=== PATIENT | male | born 1950 | race Caucasian/White ===

== ENCOUNTER 2017-04-16 08:32 | Emergency (ER) | payer OTHER ==
[2017-04-16 08:49] VITALS: BP 121/63; BMI 24.3
--- NOTE | 2017-04-16 09:06 | DR.GENAD ---
HPI - PCP Primary Care Physician: NFCarlos Alberto - HPI Comment HPI Comment: THESE SYMTOMS ARE INTERMITTENT FOR ONE WEEK. CURRENT SYMTOMS STARTED LAST NIGHT AND IS LASTING LONGER THAN PREVIOUS EPISODES. DENIES CHEST PAIN OR TRAUMA. NO FEVER. HAD HTN BUT NOT TAKING MED CURRENTLY. BP IN ED NORMAL. - Complaint/Symptoms Chief Complaint Doctors Comments: SOB, DIZZINESS AND PAIN BOTH ARMS. FELL SOMETHING IS STUCK UP IN HIS THROAT. Chief Complaint:: PT C/O HAVING A MÁRQUEZ, AND HAVING PAIN IN BOTH OF HIS ARMS, AND HE FEELS LIKE SOMETHING IS STUCK IN THROAT. Self Treatment fo Chief Complaint: PT C/O HAVING INTERMITTANT SOB .PT C/O BEING DIZZY.. PT DENIES C/P PT IS ALERT AND ORIENTED NO DISTRESS NOTED . PT STATES " I HAVE HTN BUT I DON'T HAVE THE MONEY TO PAY TO SEE A DOCTOR". - Nurses notes reviewed Nurses Notes Review: Yes - Source History Provided: Patient - Mode of Arrival Mode of Arrival: Ambulatory - Timing Onset of Chief Complaint: 04/16/17 Came on: Suddenly - Duration Duration: Constant Duration: Hours - Severity Severity: Moderate PMH - PMH Past Medical History: Yes Past Medical History: Hypertension Past Surgical History: Yes Surgical History: Abdominal Surgery - Family History History of Family Medical Conditions: Yes Family Medical History: Hypertension - Social History Does patient currently use any type of tobacco product: Yes Have you used tobacco products in the last 12 months: Yes Type of Tobacco Use: None How many years tobacco product used: 40 Does any household member use tobacco: No Alcohol Use: None Do you use any recreational Drugs:: No Lives With: Alone Lives Where: Home - infectious screening In the last 2 months have you had wt loss of >10#?: NO Have you had fever, night sweats or hemotysis?: No Have you traveled outside the country in the last 6 months?: No Isolation: Standard ROS - Review of Systems Constitutional: Weakness, Fatigue Eyes: No Symptoms Reported ENTM: Throat Pain (FEEL LIKE SOMETHING STUCK IN THROAT.). negative: Ear Pain, Nose Discharge, Nose Congestion Respiratoy: Non-Productive Cough, Short of Breath. negative: Wheezing, Hemoptysis Cardiovascular: No Symptoms Reported (PAIN BOTH ARMS) Gastrointestinal/Abdominal: No Symptoms Reported Genitourinary: No Symptoms Reported Neurological: Headache, Weakness, Dizziness Musculoskeletal: No Symptoms Reported Integumentary: No Symptoms Reported Hematologic/Lymphatic: No Symptoms Reported Endocrine: No Symptoms Reported All Other Systems: Reviewed and Negative PE - Vital Signs Vitals: Temperature 97.0 F Pulse Rate 97 Respiratory Rate 20 Blood Pressure 121/63 O2 Sat by Pulse Oximetry 98 - General Limitations: No Limitations General Appearance: Alert - Head Head Exam: Normal Inspection - Eyes Eye exam: Normal Appearance - ENT ENT Exam: Normal External Ear Exam External Ear Exam: Normal External Inspection TM/Canal Exam: Bilateral Normal Nose Exam: Normal Nose Exam Mouth Exam: Normal Inspection Throat Exam: Normal Inspection - Neck Neck Exam: Trachea Midline - Chest Chest Inspection: Symmetric Chest Wall Rise - Respiratory Respiratory Exam: Normal Lung Sounds Bilat Respiratory Exam: Bilateral Clear to Auscultation - Cardiovascular Cardiovascular Exam: Regular Rate, Normal Rhythm, Normal Heart Sounds - Abdominal Exam Abdominal Exam: Normal Bowel Sounds, Soft. negative: Tenderness - Extremities Extremities Exam: Normal Inspection - Back Back Exam: Normal Inspection - Neurologic Neurological Exam: Alert, Oriented X3 - Psychiatric Psychiatric Exam: Normal Affect, Normal Mood - Skin Skin Exam: Normal Color MDM - Differential Diagnosis Differential Diagnosis: [place], CVA, TIA, DIZZINESS, MUSCULOSKELETAL PAIN. Course - Treatment Treatment: SEE ORDERS. SYMTOMS RESOLVE SPONTANOUSLY WHILE PATIENT WAS IN THE ED. - Reevaluation 1st: Improved - Education/Counseling Education/Counseling: Patient, Education Educated On: Diagnosis, Needs for Follow Up ROR - Labs Reviewed Result Diagrams: 04/16/17 09:25 04/16/17 09:25 Laboratory: WBC 12.3 X10^3/uL (3.6-10.0) H 04/16/17 09:25 RBC 5.30 X10^6/uL (4.7-6.0) 04/16/17 09:25 Hgb 16.5 g/dL (13.5-18.0) 04/16/17 09:25 Hct 47.9 % (42.0-54.0) 04/16/17 09:25 MCV 90.5 fL (80.0-100.0) 04/16/17 09:25 MCH 31.2 pg (27.0-34.0) 04/16/17 09:25 MCHC 34.5 g/dL (33.0-35.0) 04/16/17 09:25 RDW 14.0 % (11.6-16.5) 04/16/17 09:25 Plt Count 298 X10^3/uL (150.0-450.0) 04/16/17 09:25 MPV 9.0 fL (7.4-11.0) 04/16/17 09:25 Neut % 69.3 % (42.0-75.0) 04/16/17 09:25 Lymph % 16.4 % (21.0-51.0) L 04/16/17 09:25 [place] % 12.2 % (0.0-13.0) 04/16/17 09:25 Eos % 1.0 % (0.9-2.9) 04/16/17 09:25 Baso % 1.1 % (0.2-1.0) H 04/16/17 09:25 Neut # 8.5 x10^3/uL (2.2-4.8) H 04/16/17 09:25 Lymph # 2.0 X10^3/uL (1.3-2.9) 04/16/17 09:25 [place] # 1.5 x10^3/uL (0.3-0.8) H 04/16/17 09:25 Eos # 0.1 x10^3/uL (0.0-0.2) 04/16/17 09:25 Baso # 0.1 X10^3/uL (0.0-0.1) 04/16/17 09:25 Absolute Nucleated RBC 0.0 /100WBC 04/16/17 09:25 Sodium 137 mmol/L (136-145) 04/16/17 09:25 Corrected Sodium 138 mmol/L (136-145) 04/16/17 09:25 Potassium 3.7 mmol/L (3.5-5.1) 04/16/17 09:25 Chloride 99 mmol/L (98-107) 04/16/17 09:25 Carbon Dioxide 25.8 mmol/L (21-32) 04/16/17 09:25 BUN 22 mg/dL (7-18) H 04/16/17 09:25 Creatinine 1.33 mg/dL (0.70-1.30) H 04/16/17 09:25 Est GFR (MDRD) Af Amer > 60 (>60) 04/16/17 09:25 Est GFR (MDRD) Non-Af 57 (>60) L 04/16/17 09:25 Glucose 125 mg/dL (65-99) H 04/16/17 09:25 Calcium 9.3 mg/dL (8.5-10.1) 04/16/17 09:25 Corrected Calcium TNP 04/16/17 09:25 Total Bilirubin 0.80 mg/dL (0.2-1.0) 04/16/17 09:25 AST 21 Units/L (15-37) 04/16/17 09:25 ALT 20 Units/L (12-78) 04/16/17 09:25 Alkaline Phosphatase 73 Units/L (46-116) 04/16/17 09:25 Creatine Kinase 232 Units/L (39-308) 04/16/17 09:25 CK-MB (CK-2) 3.6 ng/mL (0-4.0) 04/16/17 09:25 CK/CKMB % Calc 1.6 % (<4) 04/16/17 09:25 Troponin I 0.03 ng/mL (0-1.5) 04/16/17 09:25 Total Protein 7.7 g/dL (6.4-8.2) 04/16/17 09:25 Albumin 3.9 g/dL (3.4-5.0) 04/16/17 09:25 Globulin 3.8 g/dL (2.5-4.5) 04/16/17 09:25 Albumin/Globulin Ratio 1.0 Ratio (1.1-2.1) L 04/16/17 09:25 Specimen Type Random urine 04/16/17 09:53 Urine Color Yellow (YELLOW) 04/16/17 09:53 Urine Appearance Clear (CLEAR) 04/16/17 09:53 Urine pH 5.0 (5.0 - 8.0) 04/16/17 09:53 Ur Specific [place] 1.025 (1.000-1.030) 04/16/17 09:53 Urine Protein 3+ (NEGATIVE) 04/16/17 09:53 Urine Glucose (UA) Negative (NEGATIVE) 04/16/17 09:53 Urine Ketones 1+ (NEGATIVE) 04/16/17 09:53 Urine Occult Blood 2+ (NEGATIVE) 04/16/17 09:53 Urine Nitrite Negative (NEGATIVE) 04/16/17 09:53 Urine Bilirubin 1+ (NEGATIVE) 04/16/17 09:53 Urine Urobilinogen 1+ (NORMAL) 04/16/17 09:53 Ur Leukocyte Esterase 1+ (NEGATIVE) 04/16/17 09:53 Urine RBC 3-5 /HPF (NONE SEEN) 04/16/17 09:53 Urine WBC 2-4 /HPF (NONE SEEN) 04/16/17 09:53 Ur Squamous Epith Cells Few /HPF (NEGATIVE) 04/16/17 09:53 Amorphous Sediment Trace /HPF (NEGATIVE) 04/16/17 09:53 Urine Bacteria Trace /HPF (NEGATIVE) 04/16/17 09:53 Hyaline Casts Many /LPF (NEGATIVE) 04/16/17 09:53 Granular Casts Few /LPF (NEGATIVE) 04/16/17 09:53 Urine Mucus Many /HPF (NEGATIVE) 04/16/17 09:53 Ur Culture Indicated? No/not indicated 04/16/17 09:53 - XRAY XRAY Interpreted by: Radiologist XRAY Findings: REPORT DISCUSS WITH PATIENT. - EKG Rhythm: NSR (EKG NOTED.) - Diagnosis Discharge Problem: Dizziness Headache Qualifiers: Headache type: unspecified Headache chronicity pattern: acute headache Intractability: not intractable Qualified Code(s): R51 - Headache Dyspnea Qualifiers: Dyspnea type: shortness of breath Qualified Code(s): R06.02 - Shortness of breath; R06.00 - Dyspnea, unspecified; R06.01 - Orthopnea - Discharge Plan Disposition: HOME, SELF-CARE Condition: Stable - Follow ups/Referrals Follow ups/Referrals: HUAD,None [Primary Care Provider] - 3 days SONJA OVALLES [STAFF PHYSICIAN] - 3 days - Instructions Instructions: Smoking Cessation, Tips for Success, [id number], Shortness of Breath, [id number], Headache and Arthritis, Dizziness, [id number] Additional Instructions: RETURN TO ED IF WORSE.
[2017-04-16 09:37] LABS: BASOPHILS # (AUTO) 0.1 X10^3/uL (0.0-0.1); BASOPHILS % (AUTO) 1.1 % (0.2-1.0); EOSINOPHILS # (AUTO) 0.1 x10^3/uL (0.0-0.2); HEMATOCRIT 47.9 % (42.0-54.0); HEMOGLOBIN 16.5 g/dL (13.5-18.0); LYMPHOCYTES % (AUTO) 16.4 % (21.0-51.0); MEAN CORPUSCULAR HEMOGLOBIN 31.2 pg (27.0-34.0); MEAN CORPUSCULAR HGB CONC 34.5 g/dL (33.0-35.0); MEAN CORPUSCULAR VOLUME 90.5 fL (80.0-100.0); MONOCYTES # (AUTO) 1.5 x10^3/uL (0.3-0.8); MONOCYTES % (AUTO) 12.2 % (0.0-13.0); NEUTROPHILS # (AUTO) 8.5 x10^3/uL (2.2-4.8); NEUTROPHILS % (AUTO) 69.3 % (42.0-75.0); PLATELET COUNT 298 X10^3/uL (150.0-450.0); WHITE BLOOD COUNT 12.3 X10^3/uL (3.6-10.0)
[2017-04-16 09:55] LABS: BLOOD UREA NITROGEN 22 mg/dL (7-18); CALCIUM 9.3 mg/dL (8.5-10.1); CARBON DIOXIDE 25.8 mmol/L (21-32); CHLORIDE 99 mmol/L (98-107); COR NA(FOR HYPERGLY) 138 mmol/L (136-145); CREATININE 1.33 mg/dL (0.70-1.30); SODIUM 137 mmol/L (136-145); TROPONIN I 0.03 ng/mL (0-1.5); eGFR BLACK RACES > 60 (>60); eGFR NON BLACK RACES 57 (>60)
[2017-04-16 10:00] LABS: ALANINE AMINOTRANSFERASE 20 Units/L (12-78); ALBUMIN 3.9 g/dL (3.4-5.0); ALKALINE PHOSPHATASE 73 Units/L (46-116); ASPARTATE AMINO TRANSFERASE 21 Units/L (15-37); CKMB % 1.6 % (<4); CREATINE KINASE 232 Units/L (39-308); CREATINE KINASE MB 3.6 ng/mL (0-4.0); TOTAL PROTEIN 7.7 g/dL (6.4-8.2)
[2017-04-16 10:05] LABS: BILIRUBIN,URINE 1+ (NEGATIVE); BLOOD/HEMOGLOBIN,URINE 2+ (NEGATIVE); GLUCOSE, URINE NEGATIVE (NEGATIVE); KETONES,URINE 1+ (NEGATIVE); LEUKOCYTE ESTERASE ,URINE 1+ (NEGATIVE); NITRITES,URINE NEGATIVE (NEGATIVE); PROTEIN,URINE 3+ (NEGATIVE); UROBILINOGEN,URINE 1+ (NORMAL)
[2017-04-16 10:19] LABS: AMORPHOUS SEDIMENT,UR TRACE /HPF (NEGATIVE); APPEARANCE,URINE CLEAR (CLEAR); BACTERIA,URINE TRACE /HPF (NEGATIVE); COLOR,URINE YELLOW (YELLOW); SQUAMOUS EPITHELIAL CELL,UR FEW /HPF (NEGATIVE)
[2017-04-16 10:20] LABS: GRANULAR CASTS,URINE FEW /LPF (NEGATIVE); HYALINE CASTS, URINE MANY /LPF (NEGATIVE); MUCUS,URINE MANY /HPF (NEGATIVE)
--- NOTE | 2017-04-16 10:46 | RAD ---
HISTORY: Dizziness, headache Study: Chest AP Comparison: None Findings: The heart is within normal limits in size. The srinivasa are normal. The lungs are well inflated and free of acute infiltrates. No pleural effusions are identified. The bony thorax is unremarkable. IMPRESSION: No significant abnormality identified Reported By:
--- NOTE | 2017-04-16 10:50 | CT ---
HISTORY: Headache, dizziness Study: CT head without contrast Comparison: None Technique: Axial noncontrast images with coronal and sagittal reformats. Dose reduction procedures we re used with mA/kv adjusted for body size. Findings: The ventricles are normal in size, shape, and position. There is decreased attenuation in the periven tricular white matter suggestive of small vessel vascular disease. There is no evidence for recent or remote CVA, hemorrhage, mass lesion, or extra-axial fluid collection. The visualized sinuses are riley ar. The calvarium is intact. IMPRESSION: No acute intracranial abnormality Diffuse small vessel vascular disease Reported By:
== END 2017-04-16 11:24 | disposition home or self-care (01) ==
LOC: ER 08:43
DX: R06.02 Shortness of breath (principal); R06.00 Dyspnea, unspecified; R06.01 Orthopnea; R42 Dizziness and giddiness; R51 Headache
CPT/HCPCS: 36415; 70450; 71045; 80053; 81001; 82550; 82553; 84484; 85025; 93005; 93010; 99282; 99285